=== PATIENT | female | born 1970 | race Hispanic/Latino ===

== ENCOUNTER 2024-01-07 07:29 | Emergency (ER) | payer BC ==
[~2024-01-07] VITALS: Ht 167.6 cm; Wt 68.0 kg
[2024-01-07 07:56] LABS: BASOPHILS # (AUTO) 0.03 K/uL (0.00-0.20); BASOPHILS % (AUTO) 0.3 % (0.0-5.0); HEMATOCRIT 44.7 % (36-48); IMMATURE GRANULOCYTE ABSOLUTE 0.02 K/uL (0-1); LYMPHOCYTES # (AUTO) 0.7 K/uL (1.0-4.8); LYMPHOCYTES % (AUTO) 7.9 % (21.0-51.0); MEAN CORPUSCULAR HEMOGLOBIN 32.8 pg (27.0-33.0); MEAN CORPUSCULAR HGB CONC 34.7 g/dL (32.0-36.0); MEAN CORPUSCULAR VOLUME 94.5 fL (79-99); MONOCYTES # (AUTO) 0.5 K/uL (0.1-1.0); MONOCYTES % (AUTO) 4.9 % (3.0-13.0); NEUTROPHILS % (AUTO) 86.7 % (40.0-77.0); PLATELET COUNT (AUTO) 157 K/uL (130-400); RED BLOOD CELL COUNT(AUTO) 4.73 MIL/uL (4.00-5.50); RED CELL DISTRIBUTION WIDTH 11.7 % (11.0-15.5); WHITE BLOOD COUNT (AUTO) 9.2 K/uL (4.8-10.8)
[2024-01-07 08:00] LABS: APPEARANCE,URINE CLEAR (CLEAR); BILIRUBIN,URINE NEGATIVE (NEGATIVE); COLOR,URINE LIGHT-YELLOW (YELLOW); GLUCOSE, URINE (UA) 150 mg/dL (NEGATIVE); KETONES,URINE 20 mg/dL (NEGATIVE); LEUKOCYTE ESTERASE ,URINE NEGATIVE Leu/uL (NEGATIVE); NITRATE,URINE NEGATIVE (NEGATIVE); OCCULT BLOOD,URINE NEGATIVE (NEGATIVE); PROTEIN,URINE 10 mg/dL (NEGATIVE); UROBILINOGEN,URINE 0.2 mg/dL (0.2-1.0)
[2024-01-07 08:01] LABS: ADD UA MICROSCOPIC YES
[2024-01-07] MEDS: LACTATED RINGERS 1000ML 1,000 ML IV ONE (08:03)
[2024-01-07] MEDS: PANTOPRAZOLE 40 MG/VIAL IVP ONE (08:03)
[2024-01-07] MEDS: ONDANSETRON 4MG INJ IVP ONE (08:03)
[2024-01-07 08:09] LABS: MUCUS,URINE RARE LPF (None Seen); SQUAMOUS EPITHELIAL CELL,UR RARE /HPF (0-2); WBC,URINE 0-1 /HPF (0-1)
[2024-01-07 08:11] LABS: ALBUMIN 4.1 g/dL (3.5-5.0); BILIRUBIN,TOTAL 0.7 mg/dL (0.2-1.0); CREATININE 0.7 mg/dL (0.5-1.0); POTASSIUM 4.5 mmol/L (3.5-5.1); TOTAL PROTEIN, SERUM 6.9 g/dL (6.0-8.3)
[2024-01-07] MEDS ORDERED: LIDOCAINE HCL 2% VISCOUS 15 ML UDCUP PO ONE (10:30)
[2024-01-07] MEDS ORDERED: DICYCLOMINE HCL 10 MG/5 ML ML PO ONE (10:30)
[2024-01-07] MEDS ORDERED: MAG/ALUM/SIMETH 30 ML UDCUP PO ONE (10:30)
[2024-01-07] MEDS: MAG/ALUM/SIMETH 30 ML UDCUP PO ONE (10:51)
[2024-01-07] MEDS: DICYCLOMINE HCL 10 MG/5 ML ML PO ONE (10:51)
[2024-01-07] MEDS: LIDOCAINE HCL 2% VISCOUS 15 ML UDCUP PO ONE (10:51)
[2024-01-07 10:53] LABS: AMPHET/METH SCREEN,URINE NEGATIVE (NEGATIVE); BARBITURATE SCREEN, URINE NEGATIVE (NEGATIVE); BENZODIAZEPINES SCREEN,URINE NEGATIVE (NEGATIVE); CANNABINOID SCREEN,URINE NEGATIVE (NEGATIVE); COCAINE SCREEN,URINE NEGATIVE (NEGATIVE); OPIATE SCREEN,URINE NEGATIVE (NEGATIVE); PHENCYCLIDINE SCREEN,URINE NEGATIVE (NEGATIVE)
[2024-01-07] MEDS: 0.9%NACL 1000ML 1,000 ML IV ONE (11:51)
[2024-01-07] MEDS ORDERED: PANT40TA55 PO ×2 (12:03→13:10)
[2024-01-07 13:07] VITALS: BP 120/41; PULSE 69; RESP 16; O2SAT 98
== END 2024-01-07 13:15 | disposition home or self-care (01) ==
LOC: EDH 07:29
DX: K52.9 Noninfective gastroenteritis and colitis, unspecified (principal); K29.20 Alcoholic gastritis without bleeding; K21.9 Gastro-esophageal reflux disease without esophagitis; Z79.899 Other long term (current) drug therapy; Z90.49 Acquired absence of other specified parts of digestive tract; Z90.89 Acquired absence of other organs; Z98.890 Other specified postprocedural states
CPT/HCPCS: 99284; 84484; 80053; 80305; 83690; 85025; 81001; 36415; 96374; 96361; 96375; 93005; J7120; J7030; J2405; J2470